=== PATIENT | male | born 1965 | race Caucasian/White ===

== ENCOUNTER → 2022-06-14 11:32 | Outpatient (CLI) | payer OTHER, SELFPAY ==
--- NOTE | ~2022-06-14 | US_ITS ---
US abdomen complete DATE: 06/14/2022 12:12 INDICATION: Right upper quadrant abdominal pain, nausea TECHNIQUE: Real-time imaging and Doppler analysis of the abdomen COMPARISON: None FINDINGS: There is limited visualization of the pancreas due to overlying bowel gas. No hepatic space -occupying mass lesion is detected. Normal hepatopedal portal venous flow direction. No gallstones or gallbladder wall thickening. Negative sonographic Wilson's sign. The common bile karina t measures 5.8 mm, normal. Normal splenic size. No renal mass lesion or hydronephrosis. Normal caliber of the abdominal aorta. Inferior vena cava is unremarkable. IMPRESSION: Limited visualization of pancreas; otherwise negative Reviewed, dictated and finalized at [facility]. Reviewed, dictated and finalized at [facility].
== END ==
PROVIDERS: PCP Internal Medicine; Visit Provider Nurse Practitioner Family
DX: R10.11 Right upper quadrant pain (principal)
CPT/HCPCS: 76700

== ENCOUNTER 2024-02-24 06:55 | Outpatient (CLI) | payer OTHER, SELFPAY ==
--- NOTE | ~2024-02-24 | MR_ITS ---
EXAMINATION: MR shoulder RT wo con DATE: 02/24/2024 07:42 INDICATION: Right shoulder pain TECHNIQUE: Magnetic resonance imaging (MRI) of the right shoulder was performed without intravenous c ontrast. Sequences included axial PD-weighted FS FSE, coronal oblique PD-weighted FS FSE, coronal obl ique T2-weighted FS FSE, sagittal PD-weighted FS FSE, and sagittal T1-weighted SE. COMPARISON: None. FINDINGS: Coracoacromial arch: The acromion undersurface is curved in morphology (type II). Moderate acromioclavicular osteoarthriti s with small inferiorly directed osteophytes which exerts mild mass effect upon the supraspinatus ten don and otherwise normal coracoacromial ligament. Rotator cuff: Moderate supraspinatus and infraspinatus tendinopathy. There is a tear along the greater tuberosity f ootplate of the conjoined portion of the supraspinatus and infraspinatus tendons. The tear extends 1. 3 cm AP an articular sided tear involving greater than 50% of the tendon thickness and with small ful l-thickness component measuring approximately 3 mm AP at the anterior side of the tear. Mild subscapu denzel tendinopathy without discrete tear. Normal rotator cuff muscle bulk and signal. Biceps tendon, glenoid labrum and glenohumeral cartilage: Mild tendinopathy without discrete tear of the intra-articular portion of the long head biceps tendon . There is a tear extending along the base of the 9:00-6:30 position of the posterior inferior glenoi d labrum. Small focus of subarticular edema-like signal change along the inferior rim of the glenoid at the anterior margin of the labral tear. Less well-defined increased signal and irregular margins c onsistent with 1 degenerative tearing of the 12:00 to 10:00 position of the superior glenoid labrum. There are also partial tears of the superior and middle glenohumeral ligaments. There is mild partial -thickness cartilage loss with smooth chondral surface along the superolateral and inferomedial aspec ts of the humeral head with the superior glenoid. Fluid: Minimal glenohumeral joint effusion with proportional extension of a small amount of fluid posterior and deep subscapular recesses as well as the biceps tendon sheath. No loose osteochondral bodies. Sm all amount of fluid mild synovitis in the subacromial/subdeltoid bursa consistent with mild bursitis. Bones: Bone alignment is normal. Couple small low signal intensity bone islands at the posterior humeral hea d. No fracture or pathologic marrow replacing process. IMPRESSION: 1. Moderate supraspinatus and infraspinatus tendinopathy with small tear at the insertion of the conj oined portion of the tendons primarily articular sided with very small full-thickness component. 2. Minimal right glenohumeral osteoarthritis with tear of the posterior inferior and superior glenoid labrum, the latter with extension to the superior and middle glenohumeral ligaments. 3. Mild tendinopathy without tear of the intra-articular long head biceps tendon. 4. Moderate acromioclavicular osteoarthritis with mild underlying subacromial/subdeltoid bursitis. Reviewed, dictated and finalized at location [facility]. ITY COORDINATOR IMPRESSION: 1. Moderate supraspinatus and infraspinatus tendinopathy with small tear at the insertion of the conjoined portion of the tendons primarily articular sided wi th very small full-thickness component. 2. Minimal right glenohumeral osteoarthritis with tear of the posterior inferio r and superior glenoid labrum, the latter with extension to the superior and mi ddle glenohumeral ligaments. 3. Mild tendinopathy without tear of the intra-articular long head biceps tendo n. 4. Moderate acromioclavicular osteoarthritis with mild underlying subacromial/s ubdeltoid bursitis.
== END 2024-02-24 06:56 | disposition home or self-care (01) ==
PROVIDERS: PCP Internal Medicine; Visit Provider Physician Assistant Surgical
DX: M19.011 Primary osteoarthritis, right shoulder (principal)
CPT/HCPCS: 73221

== ENCOUNTER 2024-03-02 15:18 | Outpatient (CLI) | payer OTHER, SELFPAY ==
--- NOTE | 2024-03-02 15:38 | ECG_ITS ---
Test Date: 2024-03-02 15:51:03 Measurements Intervals [place] Rate: 59 P: 26 NV: 180 QRS: 1 QRSD: 108 T: -5 QT: 415 QTc: 411 Interpretive Statements SINUS BRADYCARDIA No previous ECG available for comparison Electronically Signed On 03-02-2024 19:03:05 ROLL SETTER by Alia Aguilar
[2024-03-02 16:46] LABS: Anion Gap 4 mmol/L (4-12); Blood Urea Nitrogen 25 mg/dL (9-20); Carbon Dioxide 29 mmol/L (22-30); Chloride 101 mmol/L (98-107); Estimated Glomerular Filt Rate > 60; Glucose 95 mg/dL (65-110); Potassium 3.6 mmol/L (3.4-5.0); Sodium 134 mmol/L (137-145)
== END 2024-03-02 15:19 | disposition home or self-care (01) ==
LOC: ANHSURGERY 15:23
PROVIDERS: Anesthesiology; PCP Internal Medicine; Visit Provider Orthopaedic Surgery
DX: M75.101 Unspecified rotator cuff tear or rupture of right shoulder, not specified as traumatic (principal); I10 Essential (primary) hypertension; Z79.899 Other long term (current) drug therapy; Z01.818 Encounter for other preprocedural examination
CPT/HCPCS: 36415; 80048; 87081; 87181; 93005

== ENCOUNTER 2024-03-08 02:25 | Day surgery (SDC) | payer OTHER, SELFPAY ==
[2024-03-01 10:35] VITALS: BMI 32.3
--- NOTE | 2024-03-01 10:43 | PC.NURSE ---
Report to the Outpatient Waiting Room, entrance under the green pavilion located off [facility], at time _1000_ on date _[id number]_. Planned Procedure Time: _1200.? Time changes happen often and if your time is changed the preop area will call you the afternoon before. - You and your visitor will be asked to self-screen and do not enter if you have any COVID symptoms. Please call surgeon if you need to reschedule. - A mask is optional within the hospital at this time. Patients may have clear liquids (water, carbonated beverages, clear teas, apple juice) until 3 hours prior to surgery with a maximum of 20 ounces. - No food from midnight until time of surgery and no smoking. This includes no chewing gum, candy or mints. Take only the following medications with a SIP of water on the morning of surgery: ____Amlodipine and Nebivovlol DO NOT STOP ANY OF YOUR OTHER PRESCRIPTION MEDICATIONS PRIOR TO SURGERY EXCEPT THE FOLLOWING Medications to discontinue per physician Multivitamin Date to take last xaqb___[id number]___Epcg stopped Glucosamine 02-28-2024 per 's instructions. Please no make-up, nail singaporean, hairspray, perfume, deodorant, or body powder the day of surgery.? No jewelry (including any body piercings) or valuables the day of surgery, leave them at home.? Please take a shower or bath the night before, or the morning of, surgery with an antibacterial soap.? Wear comfortable, loose fitting clothing.? - Jewelry must be removed prior to entering the operating room.? Rings and piercings that are not removed may be cut off. - The hospital will not accept responsibility for valuables.? - Please leave all valuables, including medications, at home the day of surgery. If you are going home after surgery, a licensed national van truck driver must drive you home.? - NO public transportation without another adult if you receive anesthesia. - We recommend that an adult stay with you for 24 hours following discharge. - We also recommend that you do not drive, make important decision, drink alcoholic beverages, or take any drugs that were not prescribed by your health care provider for at least 24 hours after your discharge time. Follow any additional instructions given to you from your surgeon. Telephone instructions given to __Mark__and asked if any additional questions and then verbalized understanding. Patient advised to call surgeon office or pre surgery nurse liaison [phone] if any additional questions.
--- NOTE | 2024-03-07 13:02 | P.HP_ITS ---
H&P: HPI History of Present Illness Date/Time: 03/07/24 13:02 Chief Complaint: Rotator cuff tear right shoulder Narrative: 59-year-old male who presents today for arthroscopy of his right shoulder mini open rotator cuff repair procedure is indicated. Patient injured his shoulder on February 05 at home. He was pulling a sheet with his right hand in an abducted motion. He has 40 lb dog sitting on the sheet. When he pulled up he felt a tearing sensation in the right shoulder. Since that time he feels the shoulder is been weak and painful. After his initial evaluation he was sent for an MRI scan of the shoulder. MRI scan did show a medium-sized full-thickness rotator cuff tear. It also showed some significant tendinopathy involving the tissue around the tear. Treatment options were discussed with the patient. He is only 59 and does have a full-thickness tear. Generally it is recommended that anyone under 60 who is the full-thickness rotator cuff tendon tear these are report to her total. If not the tear will continue to enlarge with time is at some point will be inoperable. Patient does wish to proceed with surgery. He is very active 59-year-old and wishes to remain that way as long as possible. Review of Systems Review of Systems: All systems reviewed & are unremarkable except as noted in HPI and below PMFSH Past Medical History Medical History Right upper quadrant pain Arthritis of left knee Hyperglycemia Hypertension Surgical History Surgical History History of Achilles tendon repair 1991 left - History of hip replacement 08/27/17 (Right) Dr. Castanon Family History Family History Mother Patient's mother is in good health Father Hypertension Diabetes mellitus Heart disease Kidney disease Grandparent Hypertension Heart disease Social History Social History Social History: Caffeine-daily Smoking status: Never smoker Alcohol intake: current Drinks per week: 5 Alcohol use details: Moderate Substance use: never Substance use type: does not use Do You Feel Safe in your Home?: Yes Lack of Transportation: No Lack of Food: Never True Current Housing: Decline to Answer Concerned About Future Housing: No Difficulty Paying Gas/Electric Bills: No Difficulty Paying for Meds: No Currently Unemployed: No Education: Master's Degree or Higher Difficulty w/ Childcare or Family Care: No Living arrangements: with family Additional living arrangements comments: and two kids Occupation/Education: occupation Additional occupation/education comments: Teacher-[employer] Spiritual care concerns: No Meds Home Medications and Allergies Home Medications ?Medication ?Instructions ?Recorded ?Confirmed ?Type glucosamine-chondroitin 500 mg-400 1 tablet PO DAILY 10/31/20 03/03/24 History mg tablet multivitamin 1 tablet PO DAILY 10/31/20 03/03/24 History atorvastatin 10 mg tablet 10 mg PO DAILY #90 tabs 03/12/23 03/03/24 Rx losartan 100 mg tablet See Rx Instructions .Route 03/12/23 03/03/24 Rx .COMPLEX #90 tabs nebivolol 5 mg tablet See Rx Instructions .Route 03/12/23 03/03/24 Rx .COMPLEX #90 tabs tadalafil 20 mg tablet 20 mg PO DAILY PRN sexual activity 03/12/23 03/03/24 Rx #30 tabs mupirocin 2 % topical ointment 1 applic topical BID #22 grams 03/04/24 Rx amlodipine 10 mg tablet 10 mg PO DAILY #90 tabs 03/07/24 Rx hydrochlorothiazide 25 mg tablet 25 mg PO DAILY #90 tabs 03/07/24 Rx Allergies Allergy/AdvReac Type Severity Reaction Status Date / Time No Known Allergies Allergy Verified 03/03/24 14:00 Exam Narrative: 59-year-old male alert. BMI is 31.1. H e has elevation right shoulder to 145 with some mild discomfort. External rotation to 55 internal rotation is to T8. He has trace weakness with thumbs down abduction testing but moderate weakness with external rotation. He has mild discomfort with strength testing. Subscap lift-off is intact. Negative abdominal compression test. Neck range of motion is full without discomfort, negative Spurling's maneuver. 2+ radial pulse in the wrist. There is no bruising or resolving ecchymosis around the shoulder. He has mildly protracted shoulders. Resp: Auscultation: clear to auscultation bilaterally Cardio: Rate: regular rate Rhythm: regular rhythm Assessment and Plan Assessment and plan (1) Right rotator cuff tear: Code(s): M75.101 - Unspecified rotator cuff tear or rupture of right shoulder, not specified as traumatic Status: Acute Assessment and Plan: 59-year-old male who is the medium size full-thickness rotator cuff tear right shoulder. Treatment options including surgical and nonsurgical treatment were discussed. Patient would like to proceed with surgery. Surgical procedure as well as the risks and complications were discussed in detail all questions were answered and we will proceed. Patient will avoid any aspirin ibuprofen products 1 week prior to surgery. He will see his primary care doctor for pre-surgical clearance. Patient's nasal swab did grow oxacillin sensitive Staph aureus and he has been Decolonizing.
[2024-03-08] VITALS (9 sets, daily range): BP systolic 130–162; BP diastolic 65–86; PULSE 70–88; RESP 16–20; TEMP 36.2–36.8; O2SAT 93–100
--- NOTE | ~2024-03-08 | XR_ITS ---
XR shoulder RT 1V Ordering provider: Bro Arnold MD History: . MISSING NEEDLE XRAY . Comparison: None. FINDINGS: BONES: No acute fracture or dislocation. JOINT SPACES: The acromioclavicular joint is normal. The glenohumeral joint is normal. SOFT TISSUES: Normal. No radiopaque foreign bodies seen. IMPRESSION: No acute osseous abnormality right shoulder. No radiopaque foreign bodies seen. Reviewed, dictated and finalized at location A. [facility] [facility]
[2024-03-08] MEDS: LACTATED RINGERS 1,000 ML 30 ML IV CONT ×2 (10:30→14:55)
[2024-03-08] MEDS: VANCOMYCIN 1,500 MG/NS 500 ML 1,500 MG/500 ML BAG 250 MG IVPB (10:45)
[2024-03-08] MEDS: KETOROLAC 15 MG/ML VIAL (*BKC) IV PUSH ×2 (10:45→14:23)
[2024-03-08] MEDS: ACETAMINOPHEN 500 MG TABLET 1000 MG PO (11:30)
--- NOTE | 2024-03-08 11:40 | WPDANESEPPF ---
Anes - Initial Pre Proc Eval Procedure: Operation Date: 03/08/24 12:00 Proposed Procedures p Right Shoulder Arthroscopy, Mini Open Rotator Cuff Repair, Possible Biceps Tenodesis with Fibertak Button, Possible Arthrex Patch, Proceed as Indicated - Bro Arnold MD Date/Time: 03/08/24 11:40 Surgeon: Bro Arnold MD Pre Op Diagnosis: right shoulder rotator cuff tear Patient Data Age: 59 Gender: M Height: 1.74 m Weight: 94.2 kg Last Vital Signs Temp 36.2 C L 03/08/24 10:00 Pulse 70 03/08/24 10:00 Resp 18 03/08/24 10:00 BP 162/85 H 03/08/24 10:00 Pulse Ox 100 03/08/24 10:00 O2 Del Method Room Air 03/08/24 10:00 Allergies Allergy/AdvReac Type Severity Reaction Status Date / Time No Known Allergies Allergy Verified 03/03/24 14:00 Home Medications ?Medication ?Instructions ?Recorded ?Confirmed ?Type glucosamine-chondroitin 500 mg-400 1 tablet PO DAILY 10/31/20 03/03/24 History mg tablet multivitamin 1 tablet PO DAILY 10/31/20 03/08/24 History atorvastatin 10 mg tablet 10 mg PO DAILY #90 tabs 03/12/23 03/08/24 Rx losartan 100 mg tablet See Rx Instructions .Route 03/12/23 03/08/24 Rx .COMPLEX #90 tabs nebivolol 5 mg tablet See Rx Instructions .Route 03/12/23 03/08/24 Rx .COMPLEX #90 tabs tadalafil 20 mg tablet 20 mg PO DAILY PRN sexual activity 03/12/23 03/03/24 Rx #30 tabs mupirocin 2 % topical ointment 1 applic topical BID #22 grams 03/04/24 03/08/24 Rx amlodipine 10 mg tablet 10 mg PO DAILY #90 tabs 03/07/24 03/08/24 Rx hydrochlorothiazide 25 mg tablet 25 mg PO DAILY #90 tabs 03/07/24 03/08/24 Rx Patient hx anesthesia problems: none Family hx anesthesia problems: none Results Review: All pre-operative results and documents have been reviewed as part of the pre-operative evaluation. [facility] Past Medical History Medical History Right upper quadrant pain Arthritis of left knee Hyperglycemia Hypertension Surgical History Surgical History History of Achilles tendon repair 1991 left - History of hip replacement 08/27/17 (Right) Dr. Castanon Family History Family History Mother Patient's mother is in good health Father Hypertension Diabetes mellitus Heart disease Kidney disease Grandparent Hypertension Heart disease Social History Social History Social History: Caffeine-daily Smoking status: Never smoker Alcohol intake: current Drinks per week: 5 Alcohol use details: Moderate Substance use: never Substance use type: does not use Do You Feel Safe in your Home?: Yes Lack of Transportation: No Lack of Food: Never True Current Housing: Decline to Answer Concerned About Future Housing: No Difficulty Paying Gas/Electric Bills: No Difficulty Paying for Meds: No Currently Unemployed: No Education: Master's Degree or Higher Difficulty w/ Childcare or Family Care: No Living arrangements: with family Additional living arrangements comments: and two kids Occupation/Education: occupation 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 Informed Consent: The patient's anesthetic plan and its attendant risks and benefits were discussed with the patient/family/POA. Questions were solicited and answers provided to the satisfaction of the patient/family/POA.
--- NOTE | 2024-03-08 11:42 | WPDHPUPDATE1 ---
History and Physical Update Update Date/Time: 03/08/24 11:42 History and Physical has been reviewed, including an updated exam of the patient. There are NO changes in the patient's condition. Risks, benefits, and alternatives have been discussed and questions answered. Patient agrees to proceed with procedure.
[2024-03-08] MEDS: ceFAZolin 2 GM/D5W 50 ML 2 GM/50 ML BAG IVPB (11:58)
[2024-03-08] MEDS: ceFAZolin SODIUM 1 GM VIAL (12:28)
[2024-03-08] MEDS: ceFAZolin SODIUM 1 GM VIAL IV PUSH (14:22)
--- NOTE | 2024-03-08 14:47 | P.OP_ITS ---
Procedure Note - Detailed Date of Procedure 03/08/24 Pre-op Diagnosis right shoulder rotator cuff tear, diffuse degenerative tearing anterior superior labrum Post-op Diagnosis Same Procedure Performed Arthroscopic subacromial decompression and labral debridement, open rotator cuff repair with Arthroflex acellular dermal allograft repair augmentation Surgeon Bro Arnold MD Registered Account Administrator Genevieve Anesthesia General Description of Procedure Patient was brought to the operating room and general anesthesia was administered. He received 2 g of Ancef weight based vancomycin preoperatively. He was placed in the beach chair position head secured in neutral alignment in the right shoulder prepped draped usual fashion. A he seemed to have full passive range of motion. All the skin was covered with I have been except the top portion. A standard posterior portal was placed after injection of the shoulder with 20 cc of normal saline. An anterior superior portal was placed through which a small motor a shaver inserted. Diagnostic arthroscopy performed. He upper edge new and insertion of the subscapularis was normal. There was a large tear is involving the supraspinatus and the infraspinatus tendons. And he this was full-thickness involving the infraspinatus and high- grade articular sided partial-thickness tearing of the supraspinatus. There was medial retraction the infraspinatus. The long head of the biceps looked normal. The over the pulleys looked normal the shaver was used to retract the long head of the biceps in joint the the the erythema in the portion within the bicipital groove there was no fraying whatsoever. There was extensive maceration of the superior labrum on the anterior labrum. This was gently debrided with a motorized shaver. The superior labrum was hypermobile but there was still attached to the is a superior glenoid neck. A The arthroscope was placed in to the subacromial space through the posterior portal. A of flow cannula was again displaced in the anterior superior portal and a mid lateral portal was established and we used the Arthrex cautery device to ablate coracoacromial ligament from the anterior undersurface the acromion. The acromial morphology was flat therefore we did not perform an acromioplasty. The IO band was placed over the remaining uncovered skin and the outer gloves were changed. A 5 cm longitudinal incision was made starting from the top of the anterior acromion extending anterolateral and this was carried down to the tendinous raphe between the anterior and middle heads of the deltoid and the deltoid was incised at the tendinous rest today for a distance of 4 cm let. To improve exposure we elevated approximately 5 or 6 mm of deltoid off the anterior acromion and the self retraining retractor was placed. The tear was inspected the it was an L-shaped tear with a longitudinal split between the posterior margin and supraspinatus about 2 cm and the infraspinatus was detached from the middle facet the tuberosity. The supraspinatus had a 90% partial-thickness articular side partial-thickness tear. Subdeltoid subacromial adhesions were released with a blunt elevator. The greater tuberosity footprint was then thoroughly debrided of residual soft tissue and a 2 mm bur was used to make 1 mm deep dimples over the bony surface and multiple 2 mm bur holes placed at the medial margin of the tuberosity adjacent to the articular surface for passage of sutures. We used the 1.4 mm Jessica suture tapes and placed for stitch in the supraspinatus the bringing the posterior corner to its anatomic position the securing this down thereby compressing the remaining supraspinatus tendon to the prepared supraspinatus footprint. We then brought the anterior distal corner of the infraspinatus anteriorly and laterally the. This tended to dog ear the the rotator cuff medial to the apex of the split so I could conclude that this was not appear split but more of a U shaped defect. The apex of the U was therefore repaired down the with another 1.4 mm suture tape pulling this laterally which b rought the tendon into contact with the medial 50% of the tuberosity footprint. The this area of the rotator cuff seemed to be quite macerated and her somewhat thinned. Additional repair was carried out with 2 more 2. Ethibond so passed through the medial tuberosity for holes containing full-thickness bites of the supraspinatus tendon compressing it to the tuberosity and 3 Number 5 Ethibonds were placed in the infraspinatus. The sutures were placed in a converging pattern to create a smooth spherical contour to the repair and this was therefore a large tear. Total of 8 sutures were utilized. The shoulder was taken through full range of motion. There is no impingement on the repair by the acromion and there was full range of motion without undue tension on the repair. Analyzing the repair, I felt that the likelihood of recurrent tear given the maceration of the tendon at junction of supraspinatus and infraspinatus the and the appearance of relative deficiency of tissue at that l ocation leaving a small area of the greater tuberosity uncovered, I felt that augmentation would be the best course of action. We opened 1 of the arthro flex Arthrex 2 cm x 2.5 cm by 1.5 mm grafts. The graft was soaked in Ancef solution. The top surface was labeled and we applied this to the repair such that the graft covered the entire repair the hand extended to about 7 or 8 mm distal to the greater tuberosity. The approximately 16 0 Ethibond sutures were passed ,1st tacking down the corners and then alternating between anterior and posterior and proximal medial and distal lateral to progressively tightened and smooth the graft which was accomplished successfully and a taut smooth spherical contour was achieved. Once again the arm was taken through full internal external rotation elevation without any tension on the repair. The adequacy of the subacromial decompression was confirmed. The arthroscope was then placed back in the glenohumeral joint from a posterior approach and we confirmed that the long head of the biceps was still mobile and the supraspinatus and infraspinatus were approximated the medial aspect of the tuberosity from the intra-articular view. The wound was thoroughly irrigated with Ancef solution. The deltoid was repaired to the anterior acromion with 2. Vicryl through bone and 0 Vicryl was then the split. Skin closed with 2 subcutaneous Vicryl and glue. 3rd g Ancef given time wound closure. He was placed in an UltraSling transferred to postop recovery in good condition. There were no known complications. [facility] [place] Billing Surgery - Charge Forward: Surgery Billing (Arthroscopic labral debridement and subacromial decompression, open rotator cuff repair right shoulder)
--- NOTE | 2024-03-08 15:05 | PM.OP ---
Procedure Note - Brief Procedure Note - Brief Date of procedure: 03/08/24 right shoulder rotator cuff tear Procedure performed: Arthroscopy right shoulder with mini open rotator cuff repair Surgeon: CITLALY Parisi Findings: 59-year-old male who underwent arthroscopy of his right shoulder with mini open rotator cuff repair on 03/08. I was involved procedure including positioning patient on the OR table and 1st assisting through the time of surgery. Total time spent was 3 hours
[2024-03-08] MEDS: fentaNYL CITRATE INJ (*CRX) 100 MCG/2 ML VIAL 25 MCG IV PUSH ×4 (15:12→15:22)
--- NOTE | 2024-03-08 15:37 | WPDANESPNB ---
Anes - Peripheral Nerve Block Date/Time: 03/08/24 15:37 I have discussed with the patient/family/POA the placement of a peripheral nerve block for post-operative pain management, including associated risks, benefits, complications, and side effects. Alternative methods of post-operative analgesia were detailed. Questions were solicited and answers provided to the satisfaction of the patient/family/POA. Time-Out: A pre-procedural Time-Out was completed immediately before starting the procedure and confirmed: Patient Identification, Site, Procedure, Patient Position and the Availability of Requisite Equipment. Clinical Indications: Acute post-operative pain management requested by the operative surgeon. Nerve Block Insertion Note Anes-nerve block: interscalene right Patient position: supine Skin prep: chlorhexidine Needle: 22 gauge, stimulating, insulated echogenic needle. Needle length: 50 mm Technique: ultrasound Injectate: bupivacaine 0.5% with epi 5 mcg/ml (30cc- no epi) Observations: tolerated well Complications: none Procedure start time:: 153 Procedure end time:: 1541
== END 2024-03-08 17:10 | disposition home or self-care (01) ==
PROVIDERS: PCP Internal Medicine; Visit Provider Orthopaedic Surgery
PROC: (CPT 29805; principal; 2024-03-08 12:00)
DX: S46.011A Strain of muscle(s) and tendon(s) of the rotator cuff of right shoulder, initial encounter (principal); M75.81 Other shoulder lesions, right shoulder; X50.0XXA Overexertion from strenuous movement or load, initial encounter; G89.18 Other acute postprocedural pain; I10 Essential (primary) hypertension; E66.9 Obesity, unspecified; Z68.31 Body mass index [BMI] 31.0-31.9, adult
CPT/HCPCS: 23410; 64415; 73020; A4565; A9270; J0690; J1100; J1171; J1596; J1885; J2003; J2250; J2405; J2704; J3010; J3370; J7120; Q4125

== ENCOUNTER 2024-03-10 16:17 | Outpatient (RCR) | payer OTHER, SELFPAY ==
--- NOTE | 2024-03-10 17:31 | OPREHPOC ---
Outpatient Therapy Plan of Care This is a Multidisciplinary Plan of Care that may contain components documented by all disciplines (PT, OT, and ST.) PT Problem 1 PT Problem #1 Knowledge Deficit PT Goal 1 Goal / Goal Update Obion with HEP Target Visit 4 PT Problem 2 PT Problem #2 Impaired Range of Motion PT Goal 1 Goal / Goal Update 1. Achieve 170 degrees of shoulder flexion ROM 2. Achieve 80 degrees of shoulder external rotation ROM Target Visit 10 PT Goal 2 Goal / Goal Update Improve L shoulder gross strength to 4+/5 Target Visit 10
--- NOTE | 2024-03-10 17:31 | PTOPEVAL1 ---
Assessment and note entered by Chuy Packer, PT Evaluation Information Assessment Status Evaluation Onset 03/08/24 Subjective Information Reports that he was lifting the sheet off of his bed and felt a pop. Followed up with surgery. Reports that pain has been fairly well controlled. He tried getting into the bed last night and had a lot of trouble. He returned to sleeping in the recliner at this time. Denies radicular pain. Patient is R handed. Denies pain on left side, headaches, or neck pain. Reported Pain Level Pain Score 1: Self Report Assessment PT Clinical Summary Patient presents with shoulder pain and loss of ROM. At this point limited by protocol so assessment was limited until his return. Will benefit form skilled therapy to address shoulder ROM and functional progression to improve self care and functional strength. Plan of Care Interventions Electrical Stimulation,Manual Therapy,Neuro Re- education,Therapeutic Activities,Therapeutic Exercise PT Services Indicated Yes Treatment Frequency and 1-2x/week for 10 visits Duration These treatments will address the objective and functional deficits as defined above. The patient will be advanced safely and appropriately in order for the patient to progress towards his/her prior level of function. Additional exercises will be introduced and as well as a comprehensive home exercise program upon discharge, if needed, ?to ensure carryover of functional gains achieved in the clinic. This treatment plan has been reviewed and agreement upon by the patient.
--- NOTE | 2024-03-24 09:29 | PCPTNOTE ---
Patient appointment cancelled this date secondary to lack of allowance for protocol progress limiting skilled intervention.
--- NOTE | 2024-05-05 12:56 | PCPTNOTE ---
Pt conts to progress with gentle ROM in all planes. Pt has started resistive band strengthening as of 05-02-24 per MD order. MD aware pt is receiving therapy at home with [facility] . SUADS
== END 2024-06-08 23:59 | disposition home or self-care (01) ==
LOC: ANHPT 16:17
PROVIDERS: PCP Internal Medicine; Visit Provider Orthopaedic Surgery
DX: M75.101 Unspecified rotator cuff tear or rupture of right shoulder, not specified as traumatic (principal)
CPT/HCPCS: 97110; 97161